=== PATIENT | male | born 1980 | race Caucasian/White ===

== ENCOUNTER 2016-12-05 13:53 | Emergency (ER) | payer OTHER ==
[~2016-12-05 13:53] MED LIST: ADVIL; COMPAZINE25 MG/SUPP PR; ZITHROMAX250 MG PO
[2016-12-05] MEDS ORDERED: LEVOTHYROXINE75 MC3 PO (14:13)
[2016-12-05] MEDS ORDERED: CARAFATE1 G2 PO (14:13)
[2016-12-05 14:54] LABS: BASO % 0.2 % (0-2); EOS % 4.6 % (0-7); EOSINOPHIL ABSOLUTE COUNT 0.4 tho/cmm (0.0-0.7); HCT-HEMATOCRIT 45.2 % (36.0-53.5); HGB-HEMOGLOBIN 15.2 gm/dl (13.5-17.0); LYMPH % 20.7 % (20-45); LYMPH ABSOLUTE COUNT 1.7 tho/cmm (0.8-4.5); MCH (MEAN CORPUSCULAR HGB) 29.2 pg (28.0-32.0); MCHC MEAN CORPUSCULAR HGB CONC 33.6 % (32.0-36.0); MCV (MEAN CELL VOLUME) 86.8 fl (82.0-96.0); MEAN PLATELET VOLUME 9.8 cmc (9.4-12.4); MONO % 5.8 % (0-12); MONOCYTE ABSOLUTE COUNT 0.5 tho/cmm (0.0-1.2); NEUTROPHIL ABSOLUTE COUNT 5.6 tho/cmm (1.6-8.0); NEUTROPHIL-AUTOMATED 5.6 tho/cmm (1.6-8.0); NEUTROPHILS % 68.7 % (40-80); PLATELET COUNT 354 tho/cmm (150-450); RED BLOOD COUNT 5.21 mil/cmm (4.40-5.70); RED CELL DISTRIBUTION WIDTH 12.5 % (12.4-16.4); WHITE BLOOD COUNT 8.1 tho/cmm (4.0-10.0)
[2016-12-05 15:03] LABS: ALBUMIN 3.9 g/dl (3.5-5.0); ALKALINE PHOSPHATASE 44 U/L (33-138); ALT/SGPT 31 U/L (12-78); ANION GAP 11 mmol/L (0-20); AST/SGOT 16 U/L (10-40); BILIRUBIN,TOTAL 0.4 mg/dl (0.0-1.5); BLOOD UREA NITROGEN 15 mg/dl (6-24); CARBON DIOXIDE-VENOUS 28 mmol/L (22-32); CHLORIDE 107 mmol/l (96-110); CREATININE 0.99 mg/dl (0.60-1.30); GLUCOSE 87 mg/dL (70-110); POTASSIUM 4.1 mmol/L (3.7-5.1); SODIUM 142 mmol/L (135-145); eGFR VALUE FOR BLACK >90 mL/Min
[2016-12-05] MEDS ORDERED: PRILOSEC OTC20 M1 PO (16:20)
[2016-12-05] MEDS ORDERED: NORCO 5-325 TA1 EACH PO (16:20)
== END 2016-12-05 16:45 ==
LOC: EDMED 13:53
PROVIDERS: Physician Assistant
DX: R10.11 Right upper quadrant pain (principal); R10.13 Epigastric pain; R19.7 Diarrhea, unspecified; Z87.19 Personal history of other diseases of the digestive system
CPT/HCPCS: J7030